=== PATIENT | female | born 1950 | race Caucasian/White ===

== ENCOUNTER 2020-11-25 12:10 | Day surgery (SDC) | payer MEDICARE, BC ==
[2020-11-18 15:31] LABS: BASOPHILS % (AUTO) 0.6 % (0-1); EOSINOPHILS # (AUTO) 0.1 X10'3 (0-0.9); EOSINOPHILS % (AUTO) 1.6 % (0-6); LYMPHOCYTES # (AUTO) 1.8 X10'3 (1.1-4.8); LYMPHOCYTES % (AUTO) 29.7 % (21-51); MEAN CORPUSCULAR HEMOGLOBIN 30.5 PG (27.0-31.0); MEAN CORPUSCULAR HGB CONC 32.8 g/dL (33.0-36.5); MEAN CORPUSCULAR VOLUME 93.1 FL (78-98); MEAN PLATELET VOLUME 8.9 FL (7.4-10.4); MONOCYTES # (AUTO) 0.6 X10'3 (0-0.9); MONOCYTES % (AUTO) 9.8 % (2-12); NEUTROPHILS # (AUTO) 3.4 X10'3 (1.8-7.7); NEUTROPHILS % (AUTO) 58.3 % (42-75); PRE OP HEMATOCRIT 38.4 % (35.0-45.0); PRE OP HEMOGLOBIN 12.6 g/dL (12.0-16.0); PRE OP PLATELET COUNT 259 X10'3 (140-440); RED BLOOD COUNT 4.13 X10'6 (4.20-5.60); RED CELL DISTRIBUTION WIDTH 13.6 % (11.5-14.5)
[2020-11-18 15:46] LABS: ALBUMIN 3.6 G/DL (3.4-5.0); ALBUMIN/GLOBULIN RATIO 1.2 (1.1-1.5); ALKALINE PHOSPHATASE 88 IU/L (46-116); BLOOD UREA NITROGEN 10 MG/DL (7-18); BUN/CREATININE RATIO 10.2 (6.6-38.0); CALCIUM 8.4 MG/DL (8.5-10.1); CHLORIDE 107 MMOL/L (99-107); CREATININE 0.98 MG/DL (0.40-0.90); PRE OP ALT 14 U/L (30-65); PRE OP ANION GAP 9 (8-16); PRE OP AST 12 U/L (10-37); PRE OP BILIRUB, TOTAL 0.4 MG/DL (0.0-1.0); PRE OP GLUCOSE 105 MG/DL (70-104); PRE OP POTASSIUM 3.8 MMOL/L (3.4-5.1); PRE OP SODIUM 143 MMOL/L (135-145); TOTAL CARBON DIOXIDE 27.2 MMOL/L (24-32); TOTAL PROTEIN 6.7 G/DL (6.4-8.2); eGFR 57 ML/MIN
[2020-11-18 16:00] LABS: CLARITY,URINE SLIGHTLY CLOUDY (Clear); COLOR,URINE YELLOW (Yellow); GLUCOSE, URINE NEGATIVE (Neg); KETONES,URINE TRACE mg/dl (Neg); LEUKOCYTE ESTERASE ,URINE SMALL (Neg); NITRITES, URINE NEGATIVE (Neg); OCCULT BLOOD,URINE NEGATIVE (Neg); PH,URINE 5.5 (4.8-8.0); PROTEIN,URINE NEGATIVE (Neg)
[2020-11-18 16:04] LABS: UA COLLECTION TYPE CLN CATCH MIDSTREAM
[2020-11-18 16:16] LABS: MUCUS STRANDS MANY /LPF (Neg); SQUAMOUS EPITHELIAL CELL,UR FEW /LPF (FEW)
[2020-11-18 16:17] LABS: BACTERIA,URINE FEW /HPF (Neg); RBC,URINE 0-2 /HPF (0-2); TRANSITIONAL EPI CELLS,URINE FEW /HPF; WBC,URINE 0-4 /HPF (0-4)
[~2020-11-25] VITALS: Ht 165.1 cm; Wt 66.0 kg
[~2020-11-25 12:10] MED LIST: ACET-1131 PO; CITA40TA17 PO; DOCUMENT DATE & TIME OF BETA-BLOCKER PO ONE; GABA600T13 PO; MELA5TAB12 PO; PANT20TA18 PO; PROP20TA6 PO; SIMV-42 PO; ZOLP5TAB8 PO; ceFOXitin 2GM-NS 100mL ADDvant 100 ML IV ONE; famotidine 20mg tablet PO ONE; ringers solution, lacted 1,000 ML IV SCH
[2020-11-25 13:07] VITALS: BP 120/59
[2020-11-25] MEDS ORDERED: propofol inj 20 ML IV ONE (13:16)
[2020-11-25] MEDS ORDERED: LIDOcaine 2% (20mg/ml) 5ml vial ONE (13:16)
[2020-11-25] MEDS ORDERED: dexamethasone sod phosphate 4mg/ml inj. ONE (13:16)
[2020-11-25] MEDS ORDERED: fentaNYL/PF 50MCG/1 ML 2ML syringe ONE ×2 (13:17→14:24)
[2020-11-25] MEDS ORDERED: midazolam 1 mg/ML 2ml injection ONE ×2 (13:17→14:24)
[2020-11-25] MEDS ORDERED: ondansetron/PF 4mg/2ml inj ONE (13:17)
[2020-11-25] MEDS ORDERED: sevoflurane 250ml liquid IH ONE (14:20)
[2020-11-25] MEDS ORDERED: morphine 4 MG/ML inj SYRINge IV PRN (14:45)
[2020-11-25] MEDS ORDERED: ringers solution, lacted 1,000 ML IV SCH (14:45)
[2020-11-25] MEDS ORDERED: morphine 2 MG/ML inj. syringe IV PRN (14:45)
[2020-11-25] MEDS ORDERED: ondansetron/PF 4mg/2ml inj IV PRN (14:45)
[2020-11-25] MEDS ORDERED: proCHLORperazine 10 MG/2 ml inj IV PRN (14:45)
[2020-11-25] MEDS ORDERED: meperidine/PF 25mg/ml syringe IV PRN ×3 (14:45)
[2020-11-25] MEDS ORDERED: acetaminophen 1,000mg/100ml IV 100 ML IV ONE (15:01)
--- NOTE | 2020-11-25 15:17 | NUR ---
Received from OR via [facility] , accompanied by Anesthesiologist MARTHA and report given by Anesthesiolgist. PATIENT WITH 20G PIV IN RIGHT UE RUNNING LR AT 100. DENIES PAIN .ONE FRANCHESCA PAD IN PLACE. 10L MASK ON WITH 100% SATRUATIONS. Addendum: 11/25/20 at 1521 by Lionel Barahona RN, RN Amended: Links added.
[2020-11-25 15:19] VITALS: BP 137/75
[2020-11-25 15:29] VITALS: BP 136/55
[2020-11-25 15:30] VITALS: BP 136/55
[2020-11-25 15:40] VITALS: BP 136/63
[2020-11-25 15:50] VITALS: BP 129/64
--- NOTE | 2020-11-25 16:09 | NUR ---
ALL DISCHARGE CRITERIA HAS BEEN MET. VSS, PAIN AT A TOLERABLE LEVEL, VOIDING AND ABLE TO SAFELY AMBULATE AND TRANSFER SELF. IV TAKEN OUT WITHOUT ANY COMPLICATIONS. ALL DISCHARGE INSTRUCTIONS COVERED WITH PATIENT AND ALL QUESTIONS ANSWERED. PATIENT TAKEN OUT VIA WHEELCHAIR TO PERSONAL VEHICLE WHERE FAMILY/FRIEND DROVE PATIENT HOME. Addendum: 11/25/20 at 1609 by Lionel Barahona RN, RN Amended: Links added.
== END 2020-11-25 16:09 | disposition home or self-care (01) ==
LOC: PAS 12:10
PROVIDERS: ATTEND Obstetrics & Gynecology Obstetrics
DX: N85.8 Other specified noninflammatory disorders of uterus (principal); N88.2 Stricture and stenosis of cervix uteri; N88.8 Other specified noninflammatory disorders of cervix uteri; M19.90 Unspecified osteoarthritis, unspecified site; F31.9 Bipolar disorder, unspecified; E78.5 Hyperlipidemia, unspecified; Z98.890 Other specified postprocedural states; Z79.899 Other long term (current) drug therapy; Z88.8 Allergy status to other drugs, medicaments and biological substances; Z82.61 Family history of arthritis
CPT/HCPCS: 36415; 58555; 71046; 80053; 81001; 82948; 85025; 86885; 86900; 86901; 87088; 93005; J0131; J0694; J1100; J2001; J2250; J2405; J2704; J3010; J7030; A4355; A4618; A6258; J7120